=== PATIENT | female | born 1995 | race Caucasian/White ===

== ENCOUNTER 2019-01-22 15:40 | Inpatient (IN) | payer OTHER ==
[~2019-01-22] VITALS: Ht 167.6 cm; Wt 68.0 kg
[2019-01-27] MEDS ORDERED: SOD CITRATE-CI473 ML PO (11:57)
== END 2019-01-27 13:44 | disposition home or self-care (01) | DRG 833 ==
LOC: SURG-SUITE 15:40 → LDR 15:40 → OB/GYN 01-23 06:40 → SURG-SUITE 01-23 10:16
PROVIDERS: ADMIT Obstetrics & Gynecology
PROC: BW40ZZZ Ultrasonography of Abdomen (ICD-10-PCS; principal; 2019-01-22)
PROC: BY49ZZZ Ultrasonography of First Trimester, Single Fetus (ICD-10-PCS; 2019-01-22)
DX: O21.1 Hyperemesis gravidarum with metabolic disturbance (principal); Z34.81 Encounter for supervision of other normal pregnancy, first trimester

== ENCOUNTER 2019-04-24 04:48 | Outpatient (CLI) | payer OTHER ==
[~2019-04-24] VITALS: Ht 167.6 cm; Wt 76.2 kg
[~2019-04-24 04:48] MED LIST: SOD CITRATE-CI473 ML PO
== END 2019-04-24 05:36 | disposition left against medical advice (07) ==
LOC: LDR 04:48 → OBS/DEL 04:48 → LDR 05:50 → OBS/DEL 04-30 04:48 → EDSTATUS 04-30 15:14
DX: O26.892 Other specified pregnancy related conditions, second trimester (principal); R10.2 Pelvic and perineal pain